=== PATIENT | male | born 1995 | race Caucasian/White ===

== ENCOUNTER 2023-06-07 21:07 | Emergency (ER) | payer OTHER ==
[2023-06-07 21:53] LABS: BASOPHILS ABSOLUTE AUTO 0.1 x10^3/uL (0.0-0.2); BASOPHILS PERCENT AUTO 0.7 % (0.2-1.2); EOSINOPHILS ABSOLUTE AUTO 0.1 x10^3/uL (0.0-0.5); EOSINOPHILS PERCENT AUTO 1.3 % (0.0-4.0); HEMATOCRIT 39.5 % (40.0-52.0); HEMOGLOBIN 14.7 g/dL (14.0-18.0); IMMATURE GRAN ABSOLUTE AUTO 0.01 x10^3/uL (0.00-0.07); LYMPHOCYTES ABSOLUTE AUTO 2.9 x10^3/uL (1.0-4.8); LYMPHOCYTES PERCENT AUTO 38.6 % (25.0-50.0); MEAN CORPUSCULAR HEMOGLOBIN 32.7 pg (26.0-32.0); MEAN CORPUSCULAR HGB CONC 37.2 g/dL (32.0-36.0); MEAN CORPUSCULAR VOLUME 87.8 fL (78.0-93.0); MONOCYTES ABSOLUTE AUTO 0.7 x10^3/uL (0.0-0.8); MONOCYTES PERCENT AUTO 8.6 % (2.0-11.0); NEUTROPHILS ABSOLUTE AUTO 3.9 x10^3/uL (1.8-7.7); NEUTROPHILS PERCENT AUTO 50.7 % (50.0-80.0); PLATELET COUNT,PLT 268 x10^3/uL (130-400); WHITE BLOOD CELL COUNT,WBC 7.6 x10^3/uL (4.0-10.0)
[2023-06-07 22:07] LABS: A/G RATIO 1.28; ALANINE AMINOTRANSFERASE,ALT 39 U/L (16-63); ALBUMIN 4.1 g/dL (3.4-5.0); ALKALINE PHOSPHATASE 83 U/L (46-116); ANION GAP 13.9 mmol/L (5-15); ASPARTATE AMNIOTRANSFERASE,AST 20 U/L (15-37); BILIRUBIN TOTAL 0.3 mg/dL (0.2-1.0); BLOOD UREA NITROGEN,BUN 15 mg/dL (7-18); C-REACTIVE PROTEIN 0.05 mg/dL (<=0.30); CALCIUM 9.1 mg/dL (8.5-10.1); CARBON DIOXIDE,CO2 29 mmol/L (21-32); CHLORIDE,CL 101 mmol/L (98-107); CREATININE 1.3 mg/dL (0.70-1.30); ESTIMATED GFR 76 mL/min (>=60); GLUCOSE RANDOM 101 mg/dL (70-99); MAGNESIUM 1.8 mg/dL (1.8-2.4); POTASSIUM,K 3.9 mmol/L (3.5-5.1); PROTEIN TOTAL,TP 7.3 g/dL (6.4-8.2); SODIUM,NA 140 mmol/L (136-145)
[2023-06-07 22:14] VITALS: BP 135/85; PULSE 73
[2023-06-07] MEDS ORDERED: predniSONE 20 MG Tab PO ONE (22:14)
== END 2023-06-07 22:27 | disposition home or self-care (01) ==
LOC: VM.ED 21:07 → MERGE 21:07 → VM.ED 22:27
DX: R20.2 Paresthesia of skin (principal)
CPT/HCPCS: 36415; 80053; 83735; 85025; 85379; 86140; 99283; 99284; J7512